=== PATIENT | male | born 1985 | race Two or more races ===

== ENCOUNTER 2017-05-19 08:14 | Emergency (ER) | payer MEDICAID ==
[~2017-05-19] VITALS: Ht 175.3 cm; Wt 63.5 kg
[2017-05-19 08:52] VITALS: BP 122/64
== END 2017-05-19 10:52 | disposition home or self-care (01) ==
LOC: ER 08:14
DX: M77.9 Enthesopathy, unspecified (principal); F17.210 Nicotine dependence, cigarettes, uncomplicated
CPT/HCPCS: 73110